=== PATIENT | male | born 1965 | race Caucasian/White ===

== ENCOUNTER 2025-04-05 12:46 | Outpatient (AMB) | payer BC, SELFPAY ==
--- NOTE | 2025-04-05 08:19 | MHC.PC.OV ---
Vital Signs 04/05/25 13:01 Height 5 ft 11 in Weight 194 lb BMI 27.1 BP 120/70 Blood Pressure Location Rt brachial Position Sitting Pulse 82 Pulse Source Pulse Oximeter Temp 97.5 F Temp Source Temporal Artery Scan Pulse Oximetry (%) 99 Oxygen Delivery Method Room Air Intake Visit Reasons: LBP & left arm Youth Care Specialist Required: No Accompanied by: Self / Same As Patient Allergies No Known Allergies Allergy (Verified 04/05/25 08:20) Medication List - Last Reconciled 04/05/25 by KELLIE Jacobson celecoxib (Celebrex) 200 mg PO BID gabapentin 300 mg PO BEDTIME ibuprofen 200 mg PO Q4H Tobacco use date assessed: 04/05/25 Dental Screening Dental Screen Date: 04/05/25 Did you have a dental visit in the last 12 months?: Yes Did you have a dental problem in the last 6 months where you did not have access to dental care?: No HPI HPI Comments History of Present Illness Details The patient is a 59-year-old male presenting with left arm pain and lower back pain. Patient states he has not had a PCP for the past 3 years. The left arm pain began approximately three to four months ago and is described as severe, affecting sleep and exacerbated by any arm position. The pain radiates from the elbow to the armpit, with no associated numbness or tingling, and is not relieved by positional changes or the use of a pillow. The lower back pain is chronic, with a history of neurosurgical consultation and previous surgeries, including laminectomy and fusion procedures of neck. He states he was seen by Neurosurgery at [facility]. The patient has been advised to undergo x-rays and physical therapy, but insurance issues have delayed further imaging and treatment. The patient has a significant surgical history, including three neck surgeries and two back surgeries, with interventions such as vertebral fusion and discectomy. He reports using ibuprofen extensively for pain management, although it provides limited relief. Preventative care discussions included colon cancer screening options, with the patient expressing concern about the downtime associated with a colonoscopy. Alternative screening with Cologuard was discussed as a less invasive option. FORMERLY [facility], [facility] Medical History (Updated 04/05/25 @ 14:01 by KELLIE Jacobson) Left arm pain Low back pain Neck pain Shoulder pain, left Family History (Updated 04/05/25 @ 13:06 by Connie Franco MA) Mother No problems noted. Father No problems noted. Social History Housing: Apartment Patient Tobacco Use Status: Current everyday Tobacco user e-Cigarette/Vaping Use: Currently Using service: No Current occupational status: employed Cognitive needs: No Hearing needs: No Vision needs: No Questionnaire PHQ-9 Over the last 2 weeks, how often have you been bothered by any of the following problems? 1. Little interest or pleasure in doing things: not at all 2. Feeling down, depressed, or hopeless: not at all 3. Trouble falling or staying asleep, or sleeping too much: not at all 4. Feeling tired or having little energy: not at all 5. Poor appetite or overeating: not at all 6. Feeling bad about yourself - or that you are a failure or have let yourself or your family down: not at all 7. Trouble concentrating on things, such as reading the newspaper or watching television: not at all 8. Moving or speaking so slowly that other people could have noticed. Or the opposite - being so fidgety or restless that you have been moving around a lot more than usual: not at all 9. Thoughts that you would be better off or of hurting yourself in some way: not at all Total score: 0 Source: Developed by Drs. Neymar Decker, Sabine Casas, Darshan Palafox and colleagues, with an educational evangelina from [email or web address]. Thrive Questionnaire Date Thrive assessed: 04/05/25 I am a: Patient Within the past 12 months, did the food you bought not last and you didn't have the money to get more?: Never true Within the past 12 months, did you worry whether your food would run out before you got money to buy more?: Never true Do you have trouble paying for medicines?: No Do you have trouble getting transportation to medical appointments?: No Do you have trouble paying your heating and electricity bill?: No Do you have trouble taking care of your child, family member or friend?: No Do you have trouble with day-to-day activities such as bathing, preparing meals, shopping, managing finances, etc.?: No Are you currently unemployed and looking for a job?: No Are you interested in more education?: No THRIVE Score: 0 AUDIT C Alcohol Use Questionnaire (AUDIT-C) 1. How often do you have a drink containing alcohol?: Monthly or less 2. How many drinks containing alcohol do you have on a typical day when you are drinking?: 1 or 2 3. How often do you have six or more drinks on one occasion?: Less than monthly Total Score: 2 THI-7 AMB Questionnaire THI-7 Date THI - 7 assessed: 04/05/25 Feeling nervous, anxious, or on edge: 0 = Not at all Not being able to stop or control worryin = Not at all Worrying too much about different things: 0 = Not at all Trouble relaxin = Not at all Being so restless that it is hard to sit still: 0 = Not at all Becoming easily annoyed or irritable: 0 = Not at all Feeling afraid as if something awful might happen: 0 = Not at all Total THI-7 score (0-4 normal; 5-9 mild; 10-14 moderate; 15-21 severe): 0 Source: Developed by Drs. Neymar Decker, Sabine Casas, Darshan Palafox and colleagues, with an educational evangelina from [email or web address]. Review of Systems Const Details: CONSTITUTIONAL Negative HEAD/NECK Negative EAR/NOSE/MOUTH/THROAT Negative RESPIRATORY Negative CARDIOVASCULAR Negative GASTROINTESTINAL No abdominal pain No change in bowel habits Denies recent colonoscopy due to concerns about downtime. MUSCULOSKELETAL Reports severe left arm pain denies numbness or tingling. NEUROLOGICAL No numbness or tingling No weakness PSYCHIATRIC Negative Physical exam (Primary Care) Vital Signs: Last Vital Signs Temp 97.5 F 04/05/25 13:01 Pulse 82 04/05/25 13:01 BP 120/70 04/05/25 13:01 Pulse Ox 99 04/05/25 13:01 Oxygen Delivery Method Room Air 04/05/25 13:01 BMI result Body Mass Index 27.1 GENERAL Well developed, Well nourished, in no apparent distress HEENT Head-Normocephalic Eyes- PERRLA, EOMI, Conjuctiva clear, lids WNL Ears- Canals clear, TMs WNL Mouth/Throat-No lesions, no erythema, no exudate Neck- Supple, No lymphadenopathy, thyroid WNL RESPIRATORY Normal I:E, Clear to auscultation CARDIOVASCULAR Regular, rate and rhythm, No murmurs or rubs GASTROINTESTINAL Soft, nontender, normal bowel sounds, no masses MUSCULOSKELETAL Neck- scars noted, nontender Left arm- Full ROM, nontender to palpation, DTR 2+, muscle strength 4/5 Back-Decreased ROM, Nontender, Tender with motion, Straight leg raise negative, DTR 2+ symmetrical, Gait normal NEUROLOGICAL Gait normal PSYCHIATRIC Oriented to person, place and time Mood and affect WNL Appearance WNL Speech WNL Thought processes WNL Tobacco/Smoking Status: Tobacco use Status Tobacco use date assessed 04/05/25 04/05/25 08:24 Patient Tobacco Use Status Current everyday Tobacco 04/05/25 13:06 e-Cigarette/Vaping Use Currently Using 04/05/25 13:06 PHQ-9: PHQ-9 Score PHQ-9: Total score 0 04/05/25 13:06 Thrive Assessment: Date of Thrive Assessment Date Thrive assessed 04/05/25 04/05/25 08:24 Coding Level of Care Code New Pt New Pt Level 4 (45627) Patient Type New Diagnoses Health care maintenance Z00.00 Chronic bilateral low back pain with bilateral sciatica M54.42; M54.41; G89.29 Chronicity: chronic Back pain laterality: bilateral Sciatica presence: with sciatica Sciatica laterality: bilateral sciatica Left arm pain M79.602 Shoulder pain, left M25.512 Neck pain M54.2 Time Spent (min) 35 Comment Time spent on H&P, Chart review, patient education, submitting orders and follow up Assessment & Plan Assessment & Plan (1) Health care maintenance: Code(s): Z00.00 - Encounter for general adult medical examination without abnormal findings Plan: The patient was informed about colon cancer screening options, including colonoscopy and Cologuard, with the latter being a less invasive option that can be done at home. Cologuard ordered. Will order fasting labs. Patient to have PE in 4-6 weeks (2) Low back pain: Code(s): M54.50 - Low back pain, unspecified Category: Medical Qualifiers: Chronicity: chronic Back pain laterality: bilateral Sciatica presence: with sciatica Sciatica laterality: bilateral sciatica Qualified Code(s): M54.42 - Lumbago with sciatica, left side; M54.41 - Lumbago with sciatica, right side; G89.29 - Other chronic pain Plan: Patient was seen by Neurosurgery who recommended Xray and PT. Celebrex will be prescribed as an alternative to ibuprofen for pain management, given its longer duration of action and reduced gastrointestinal side effects. Will add Gabapentin 300mg at bedtime. Patient to follow up as needed if symptoms persist or worsen. (3) Left arm pain: Code(s): M79.602 - Pain in left arm Category: Medical Plan: The patient will undergo x-rays of the neck, shoulder to evaluate the cause of the left arm pain. A referral for physical therapy for the arm will be made, and Gabapentin will be prescribed to manage nerve pain and improve sleep quality. Will also give Celebrex. Patient may need EMG. Patient to follow up in 4-6 weeks or sooner if symptoms persist or worsen. (4) Shoulder pain, left: Code(s): M25.512 - Pain in left shoulder Category: Medical Plan: The patient will undergo x-rays of the neck, shoulder to evaluate. Gabapentin will be prescribed to manage nerve pain and improve sleep quality. Will also give Celebrex for pain and inflamation. Patient to follow up in 4-6 weeks or sooner if symptoms persist or worsen. (5) Neck pain: Code(s): M54.2 - Cervicalgia Category: Medical Plan: The patient will undergo x-rays of the neck, shoulder to evaluate. Gabapentin will be prescribed to manage nerve pain and improve sleep quality. Will also give Celebrex. Patient to follow up in 4-6 weeks or sooner if symptoms persist or worsen. Orders: Orders XR cervical spine 3V Today M54.2 - Cervicalgia, M79.602 - Pain in left arm Complete Blood Count Auto Diff Today Z00.00 - Encounter for general adult medical examination without abnormal findings XR lumbar spine 2-3V Today M54.50 - Low back pain, unspecified XR shoulder LT min 2V Today M25.512 - Pain in left shoulder PT Evaluation and Treatment Today M25.512 - Pain in left shoulder, M79.602 - Pain in left arm Comprehensive Met. Panel Today Z00.00 - Encounter for general adult medical examination without abnormal findings, Z13.1 - Encounter for screening for diabetes mellitus Lipid Panel Today Z13.220 - Encounter for screening for lipoid disorders TSH reflex Free T4 Today Z00.00 - Encounter for general adult medical examination without abnormal findings Referrals Cologuard Test Z12.11 - Encounter for screening for malignant neoplasm of colon, Z12.12 - Encounter for screening for malignant neoplasm of rectum Medications: New gabapentin 300 mg PO BEDTIME 90 caps 0RF chronic pain celecoxib (Celebrex) do not take with Ibuprofen 200 mg PO BID 180 caps 0RF Patient Instructions: - Schedule x-rays for neck, shoulder, and lower back. - Begin physical therapy for arm and lower back as prescribed. - Take Gabapentin at night to help with nerve pain and sleep. - Take Celebrex twice a day for pain management. - Consider Cologuard for colon cancer screening if unable to undergo colonoscopy.
[2025-04-05 13:01] VITALS: BP 120/70; PULSE 82; TEMP 36.4; O2SAT 99; BMI 27.1
--- OUTSIDE RECORDS SUMMARY | 2025-04-05 15:13 | XMS_ITS | Clinical Summary ---
Author Organization [address] [place] [address] [address] [place] [address] Phone Care Team Providers Care Cookie Breaker Name Role Phone Unavailable Primary Care Provider Unavailabl e Medications amoxicillin (AMOXIL) 500 mg tablet Take 1 tablet (500 mg total) by mouth every 8 (eight) hours. for 7 days 08/12/2024 Active cyclobenzaprine (FLEXERIL) 10 mg tablet Take 1 tablet (10 mg total) by mouth. at bedtime 01/25/2025 Active ibuprofen 200 mg capsule Take 3 capsules every 6 hours by oral route as needed. Active predniSONE (DELTASONE) 20 mg tablet 01/25/2025 Active dexAMETHasone (DECADRON) 4 mg tabletIndicatio ns:Acute midline low back pain without sciatica Take 1 tablet (4 mg total) by mouth 4 (four) times a day for 4 days. 16 each 02/14/2025 Active Active Problems Problem Noted Date Diagnosed Date Acute midline low back pain without sciatica Assessment & Plan (02/14/2025 5:16 PM EDT): Mr. Best describes about 3 weeks of significant midline low back pain without radiation to the legs. He is status post left-sided L4-5 and left L5-S1 minimally invasive microdiscectomy with Dr. Toure on January 25, 2019. Does admit to chronic mild intermittent paresthesias in the lower extremities but that predates this current back pain. He is neurologically intact. I am going to give him a prescription for pulsed dose dexamethasone and Pepcid for GI prophylaxis. He is can to find out where his insurance company prefers him to get x-rays and he will get x-rays of the lumbar spine with flexion and extension views. Finally, I gave him a prescription for physical therapy. He will follow-up with us at the conclusion of the therapy and if his pain persists we can obtain an MRI of the lumbar spine at that time. Encounters Date Type Department Care Team Description 02/14/2025 2:30 PM EDT Office Visit [facility] [address] [place] [address] Isiah Lopez PA Acute midline low back pain without sciatica (Primary Dx) from Last 3 Months Surgical History Surgery Date Site/Laterality Comments OTHER SURGICAL HISTORY Spinal Surgery Past here Social History Tobacco Use Types Packs/Day Years Used Date Smoking Tobacco: Never Assessed Sex and Gender Information Value Date Recorded Sex Assigned at Not on file Legal Sex Male 7:19 AM EST Gender Identity Not on file Sexual Orientation Not on file Obstetrics History Last Filed Vital Signs Vital Sign Reading Time Taken Comments Blood Pressure - - Pulse - - Temperature - - Respiratory Rate - - Oxygen Saturation - - Inhaled Oxygen Concentration - - Weight 86.2 kg (190 lb) 02/14/2025 2:34 PM EDT Height 180.3 cm (5' 11 ) 02/14/2025 2:34 PM EDT Body Mass Index 26.5 02/14/2025 2:34 PM EDT Plan of Treatment Health Maintenance Due Date Last Done Comments Pneumococcal Vaccine: 50+ Years (1 of 1 - PCV) 2014 Zoster Vaccines (1 of 2) 2014 DTaP,Tdap,and Td Vaccines (3 - Td or Tdap) 02/14/2021 02/14/2011, 06/11/2001 Depression Screening 08/03/2024 Cholesterol Screening (Lipid Panel) 01/26/2025 Colorectal Cancer Screening: Colonoscopy 01/26/2025 HIV Screening 01/26/2025 Hepatitis C Screening 01/26/2025 Social Influencers of Health Screening 01/26/2025 COVID-19 Vaccine (3 - 2024-2 6 season) 2025 01/04/2021, 12/21/2020 Influenza Vaccine (#1) 2025 RSV Immunization Adult Patients (1 - 1-dose 75+ series) 2039 HIB Vaccines Aged Out No longer eligi ble based on patient's age to complete this topic HPV Vaccines Aged Out No longer eligi ble based on patient's age to complete this topic Hepatitis A Vaccines Aged Out No long er eligible based on patient's age to complete this topic Hepatitis B Vaccines Aged Out No long er eligible based on patient's age to complete this topic IPV Vaccines Aged Out No longer eligi ble based on patient's age to complete this topic MMR Vaccines Aged Out No longer eligi ble based on patient's age to complete this topic Meningococcal ACWY Vaccine Aged Out N o longer eligible based on patient's age to complete this topic Meningococcal B Vaccine Aged Out No l onger eligible based on patient's age to complete this topic RSV Immunization Patients Under 20 months Aged Out No longer eligible b ased on patient's age to complete this topic Varicella Vaccines Aged Out No longer eligible based on patient's age to complete this topic Insurance
== END 2025-04-05 13:37 | disposition home or self-care (01) ==
LOC: HO.HMCHD 12:47
PROVIDERS: Visit Provider Physician Assistant Medical
DX: M54.42 Lumbago with sciatica, left side (principal); M54.41 Lumbago with sciatica, right side; G89.29 Other chronic pain; M79.602 Pain in left arm; M25.512 Pain in left shoulder; M54.2 Cervicalgia